=== PATIENT | female | born 1965 | race Caucasian/White ===

== ENCOUNTER 2024-06-23 13:37 | Inpatient (IN) | payer OTHER ==
[2024-06-23] MEDS: ALBUTEROL SO4 2.5/IPRATROPIUM 0.5 INH SOL 3 ML VIAL.NEB. NEB SCH (14:30)
[2024-06-23] MEDS ORDERED: methylPREDNISolone NA SUCC 125 MG/2 ML VIAL ONE (14:32)
[2024-06-23] MEDS ORDERED: ALBUTEROL SO4 2.5/IPRATROPIUM 0.5 INH SOL 3 ML VIAL.NEB. NEB ONE (14:32)
[2024-06-23] MEDS: ACETAMINOPHEN 1000 MG/100 ML BAG IVPB ONE (14:45)
[2024-06-23 14:46] LABS: INR 1.14 (0.83-1.09); PROTHROMBIN TIME (PATIENT) 12.6 SEC (9.7-13.0)
[2024-06-23 14:46] LABS: HEMATOCRIT 36.6 % (34.1-44.9); HEMOGLOBIN 12.1 g/dL (11.2-15.7); MCHC 33.1 g/dl (32.2-35.5); MEAN CELL VOLUME 90.8 fl (79.4-94.8); MEAN PLT VOLUME 9.2 fl (9.4-12.3); PLATELET COUNT 256 x10^3/uL (182-369); RDW 13.5 % (12.3-16.6)
[2024-06-23] MEDS ORDERED: ACETAMINOPHEN INJECTION 100 ML ONE (14:52)
[2024-06-23 14:56] LABS: ALBUMIN 3.6 g/dl (3.4-5.0); BILIRUBIN,TOTAL 0.9 mg/dl (0.2-1); CALCIUM 8.7 mg/dl (8.5-10.1); CREATININE 0.8 mg/dl (0.6-1.3); POTASSIUM 4.1 mmol/L (3.5-5.1)
[2024-06-23] MEDS: LACTATED RINGERS SOLUTION 1,000 ML/1,000 ML INFUS.BAG IV SCH (15:00)
[2024-06-23] MEDS: methylPREDNISolone NA SUCC 125 MG/2 ML VIAL IVPUSH ONE (15:00)
[2024-06-23 16:39] LABS: N-TERMINAL BNP 874.7 pg/ml (5-125)
[2024-06-23 16:42] LABS: VENOUS BASE EXCESS 1.7 mmol/L (-2-2); VENOUS O2 SATURATION 64.5 % (70-80); VENOUS PCO2 50.6 mmHg (38-52); VENOUS PH 7.359 (7.310-7.410)
[2024-06-23 16:54] LABS: LACTIC ACID 2.6 mmol/L (0.4-2.0)
[2024-06-23 17:08] LABS: HCV DIAGNOSTIC IN-HOUSE W/RFLX NON-REACTIVE (NONREACTIVE); HIV INTERPRETATION NEGATIVE (NEGATIVE)
[2024-06-23] MEDS ORDERED: cefTRIAXone SODIUM 1 GM VIAL ONE (18:18)
[2024-06-23] MEDS ORDERED: AZITHROMYCIN 500 MG VIAL IVPB ONE (18:18)
[2024-06-23] MEDS ORDERED: ALBUTEROL SO4 0.083% IH SOL 2.5 MG/3 ML VIAL.NEB. NEB ONE (18:20)
[2024-06-23] MEDS: CEFTRIAXONE 1,000 MG in DEXTROSE 5%-WATER - 50 ML IVPB ONE (18:20)
[2024-06-23] MEDS: ALBUTEROL SO4 0.083% IH SOL 2.5 MG/3 ML VIAL.NEB. NEB STA (18:39)
[2024-06-23] MEDS: AZITHROMYCIN 250 MG TABLET PO ONE (18:55)
[2024-06-23] MEDS: AZITHROMYCIN IVPB 500 MG in DEXTROSE 5%-WATER - 250 ML IVPB ONE (18:56)
[2024-06-23 21:49] LABS: MAGNESIUM 1.7 mg/dL (1.8-2.4); PHOSPHOROUS 2.4 (2.5-4.9)
[2024-06-23] MEDS: ASPIRIN COATED 81 MG TABLET.EC PO SCH (22:30)
[2024-06-23] MEDS: ATORVASTATIN CA 20 MG TABLET (FP) PO SCH (22:30)
[2024-06-23] MEDS: MONTELUKAST NA 10 MG TABLET PO SCH (22:30)
[2024-06-23] MEDS: ACETAMINOPHEN 500 MG TABLET (FP) PO ONE (22:30)
[2024-06-23] MEDS: ESCITALOPRAM OXALATE 10 MG TABLET PO SCH (23:35)
[2024-06-23] MEDS: BUDESONIDE/FORMETEROL FUMARATE 160/4.5 mcg INHALER IH SCH (23:38)
[2024-06-23] MEDS: OXYBUTYNIN CHLORIDE 5 MG TABLET PO SCH (23:38)
[2024-06-24] MEDS ORDERED: ALBUTEROL SO4 0.083% IH SOL 2.5 MG/3 ML VIAL.NEB. NEB PRN (00:56)
[2024-06-24] MEDS: methylPREDNISolone NA SUCC 40 MG/1 ML VIAL IVPUSH SCH (01:34)
[2024-06-24] MEDS: MAGNESIUM OXIDE 400 MG TABLET (FP) PO ONE (02:57)
[2024-06-24] MEDS: LACTATED RINGERS SOLUTION 1,000 ML/1,000 ML INFUS.BAG IV SCH (02:59)
[2024-06-24] MEDS: LEVOTHYROXINE NA 25 MCG TABLET (FP) PO SCH (07:05)
[2024-06-24 08:37] LABS: HEMATOCRIT 33.5 % (34.1-44.9); MCHC 32.8 g/dl (32.2-35.5); MEAN CELL VOLUME 90.5 fl (79.4-94.8); MEAN PLT VOLUME 9.7 fl (9.4-12.3); PLATELET COUNT 248 x10^3/uL (182-369)
[2024-06-24 08:53] LABS: CALCIUM 8.6 mg/dl (8.5-10.1); CREATININE 0.6 mg/dl (0.6-1.3); POTASSIUM 4.2 mmol/L (3.5-5.1)
[2024-06-24] MEDS: MAGNESIUM OXIDE 400 MG TABLET (FP) PO SCH (09:38)
[2024-06-24] MEDS: CALCIUM (OYSTER SHELL) 500 MG TABLET (FP) PO SCH (09:38)
[2024-06-24] MEDS: FOLIC ACID 1 MG TABLET (FP) PO SCH (09:38)
[2024-06-24] MEDS: CHOLECALCIFEROL (VIT D3) 1,000 UNIT (25 MCG) TABLET PO SCH (09:38)
[2024-06-24] MEDS: TAMSULOSIN HCL 0.4 MG CAP PO SCH (09:38)
[2024-06-24] MEDS: ENOXAPARIN NA (PORCINE) 30 MG/0.3 ML DISP.SYRIN SQ SCH (09:39)
[2024-06-24] MEDS: AZITHROMYCIN IVPB 250 MG in DEXTROSE 5%-WATER - 250 ML IVPB SCH (09:39)
[2024-06-24] MEDS: ALBUTEROL SO4 2.5/IPRATROPIUM 0.5 INH SOL 3 ML VIAL.NEB. NEB SCH (09:39)
[2024-06-24] MEDS: CEFTRIAXONE 1 GM in DEXTROSE 5%-WATER - 50 ML IVPB SCH (09:40)
[2024-06-24] MEDS: DOCUSATE SODIUM 100 MG CAPSULE (FP) PO PRN (11:47)
[2024-06-24 12:51] LABS: URINE APPEARANCE CLEAR; URINE COLOR AMBER; URINE KETONE NEGATIVE (NEGATIVE)
[2024-06-24 12:52] LABS: PH,URINE 6.5 (4.5-8); URINE BILIRUBIN 1+ (NEGATIVE); URINE GLUCOSE (UA) TRACE (NEGATIVE); URINE LEUK ESTERASE NEGATIVE (NEGATIVE); URINE NITRITE NEGATIVE (NEGATIVE); URINE PROTEIN 3+ (NEGATIVE)
[2024-06-24 12:55] LABS: URINE BACTERIA FEW /hpf (NEGATIVE); URINE RBC 50-100 /hpf (0-4)
[2024-06-25 07:55] LABS: ABSOLUTE IMMATURE GRANULOCYTES 0.06 x10^3/uL (0.0-0.031); HEMATOCRIT 28.8 % (34.1-44.9); HEMOGLOBIN 9.7 g/dL (11.2-15.7); MCHC 33.7 g/dl (32.2-35.5); MEAN CELL VOLUME 90.3 fl (79.4-94.8); MEAN PLT VOLUME 9.2 fl (9.4-12.3); MONOCYTE # 0.13 x10^3/uL (0.24-0.86); MONOCYTE % 1.8 % (4.7-12.5); PLATELET COUNT 239 x10^3/uL (182-369); RDW 14.4 % (12.3-16.6)
[2024-06-25 09:33] LABS: CREATININE 0.6 mg/dl (0.6-1.3); POTASSIUM 4.3 mmol/L (3.5-5.1)
[2024-06-25 09:34] LABS: ALBUMIN 2.7 g/dl (3.4-5.0); BILIRUBIN,TOTAL 0.3 mg/dl (0.2-1); CALCIUM 7.7 mg/dl (8.5-10.1); TOT PROT 4.5 g/dl (6.4-8.2)
[2024-06-25] MEDS ORDERED: cefTRIAXone SODIUM 1 GM VIAL ONE (10:04)
[2024-06-25] MEDS: MELATONIN 1 MG TABLET PO PRN (22:07)
[2024-06-26 08:04] LABS: HEMATOCRIT 28.8 % (34.1-44.9); HEMOGLOBIN 9.7 g/dL (11.2-15.7); MCHC 33.7 g/dl (32.2-35.5); MEAN CELL VOLUME 90.6 fl (79.4-94.8); MEAN PLT VOLUME 9.2 fl (9.4-12.3); PLATELET COUNT 266 x10^3/uL (182-369); RDW 14.7 % (12.3-16.6)
[2024-06-26 08:49] LABS: ALBUMIN 2.8 g/dl (3.4-5.0); BILIRUBIN,TOTAL 0.3 mg/dl (0.2-1); CREATININE 0.6 mg/dl (0.6-1.3); POTASSIUM 4.4 mmol/L (3.5-5.1); TOT PROT 4.6 g/dl (6.4-8.2)
[2024-06-26] MEDS: methylPREDNISolone NA SUCC 40 MG/1 ML VIAL IVPUSH SCH (09:23)
[2024-06-26] MEDS: LORATADINE 10 MG TABLET PO SCH (09:23)
[2024-06-26] MEDS: FLUTICASONE PROP 0.05% 16 GM NASAL SPRAY NS SCH (09:24)
[2024-06-26 11:22] LABS: MAGNESIUM 1.7 mg/dL (1.8-2.4); PHOSPHOROUS 3.5 (2.5-4.9)
[2024-06-26] MEDS: EMPAGLIFLOZIN (JARDIANCE) 10 MG TABLET PO SCH (12:39)
[2024-06-26] MEDS: PANTOPRAZOLE 40 MG TABLET PO SCH (20:38)
[2024-06-27 08:03] LABS: ABSOLUTE IMMATURE GRANULOCYTES 0.14 x10^3/uL (0.0-0.031); HEMATOCRIT 31.1 % (34.1-44.9); HEMOGLOBIN 10.5 g/dL (11.2-15.7); MCHC 33.8 g/dl (32.2-35.5); MEAN CELL VOLUME 90.7 fl (79.4-94.8); MONOCYTE # 0.16 x10^3/uL (0.24-0.86); MONOCYTE % 2.5 % (4.7-12.5); PLATELET COUNT 332 x10^3/uL (182-369); RDW 14.4 % (12.3-16.6)
[2024-06-27 08:28] LABS: CREATININE 0.6 mg/dl (0.6-1.3); MAGNESIUM 1.6 mg/dL (1.8-2.4); PHOSPHOROUS 4.7 (2.5-4.9); POTASSIUM 4.4 mmol/L (3.5-5.1)
[2024-06-27] MEDS ORDERED: MAGNESIUM SULF 50% (8.12 MEQ/2 ML-1 GM VIAL) IVPB ONE (09:06)
[2024-06-27] MEDS: predniSONE 20 MG TABLET (UD) PO SCH (10:11)
[2024-06-27] MEDS: MAGNESIUM SULFATE IN WATER 2 GM/50 ML IVPB IVPB ONE (10:36)
[2024-06-28 07:17] LABS: ABSOLUTE IMMATURE GRANULOCYTES 0.18 x10^3/uL (0.0-0.031); BASOPHILS # 0.01 x10^3/uL (0.01-0.08); EOSINOPHIL % 0.5 % (0.7-5.8); EOSINOPHILS # 0.04 x10^3/uL (0.04-0.36); HEMATOCRIT 33.9 % (34.1-44.9); HEMOGLOBIN 11.2 g/dL (11.2-15.7); MEAN CELL VOLUME 90.2 fl (79.4-94.8); MEAN PLT VOLUME 8.8 fl (9.4-12.3); MONOCYTE # 0.28 x10^3/uL (0.24-0.86); MONOCYTE % 3.5 % (4.7-12.5); PLATELET COUNT 423 x10^3/uL (182-369); RDW 14.3 % (12.3-16.6)
[2024-06-28 07:45] LABS: CALCIUM 8.5 mg/dl (8.5-10.1); CREATININE 0.5 mg/dl (0.6-1.3); MAGNESIUM 1.9 mg/dL (1.8-2.4); PHOSPHOROUS 3.4 (2.5-4.9)
[2024-06-28] MEDS: LACTOBACILLUS ACIDOPHILUS 1 TABLET PO SCH (09:56)
[2024-06-28 14:25] VITALS: BMI 16.2
[2024-06-28 19:12] VITALS: TEMP 98.4
[2024-06-28 22:16] VITALS: RESP 18
[2024-06-29 08:16] LABS: ABSOLUTE IMMATURE GRANULOCYTES 0.12 x10^3/uL (0.0-0.031); EOSINOPHIL % 1.8 % (0.7-5.8); EOSINOPHILS # 0.13 x10^3/uL (0.04-0.36); HEMATOCRIT 34.5 % (34.1-44.9); HEMOGLOBIN 11.4 g/dL (11.2-15.7); MEAN CELL VOLUME 89.8 fl (79.4-94.8); MEAN PLT VOLUME 9.2 fl (9.4-12.3); MONOCYTE # 0.29 x10^3/uL (0.24-0.86); MONOCYTE % 4.1 % (4.7-12.5); PLATELET COUNT 429 x10^3/uL (182-369); RDW 14.1 % (12.3-16.6)
[2024-06-29 08:52] LABS: CALCIUM 8.5 mg/dl (8.5-10.1); CREATININE 0.6 mg/dl (0.6-1.3); POTASSIUM 4.3 mmol/L (3.5-5.1)
[2024-06-29 10:12] VITALS: BP 134/62; PULSE 70
== END 2024-06-29 14:40 | disposition home or self-care (01) | DRG 133 ==
LOC: FER 13:37 → SUPCPDRO 13:37 → FM/S 20:11
PROVIDERS: ADMIT Internal Medicine; ATTEND Internal Medicine
DX: J96.21 Acute and chronic respiratory failure with hypoxia (principal); R64 Cachexia; J44.1 Chronic obstructive pulmonary disease with (acute) exacerbation; E43 Unspecified severe protein-calorie malnutrition; J18.9 Pneumonia, unspecified organism; E03.9 Hypothyroidism, unspecified; M81.0 Age-related osteoporosis without current pathological fracture; E78.5 Hyperlipidemia, unspecified; Z68.1 Body mass index [BMI] 19.9 or less, adult; N32.81 Overactive bladder; D64.9 Anemia, unspecified
CPT/HCPCS: 0241U-QW; 36415; 71045-TC-FY; 71250-TC; 80048; 80053; 80061; 81003; 82803; 82962; 83036; 83605; 83735; 83880; 84100; 84439; 84443; 84484; 85025; 85610; 85730; 86803; 87040; 87086; 87389; 87899; 93005; 93306-TC; 94640; 97116-GP; 97161-GP; 99291; J0131